=== PATIENT | female | born 1980 | race Caucasian/White ===

== ENCOUNTER → 2019-06-02 | Outpatient (CLI) | payer OTHER ==
--- NOTE | 2019-06-02 15:51 | XR ---
EXAMINATION TYPE: XR tibia fibula LT DATE OF EXAM: 06/02/2019 COMPARISON: NONE HISTORY: Pain TECHNIQUE: Two views are submitted. FINDINGS: The osseous structures are intact. The joint spaces are preserved. There is a deformity of the prox imal fibula which appears to be chronic. IMPRESSION: 1. No acute osseous abnormality. 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 Small osteochondroma not excluded.
--- NOTE | 2019-06-02 15:52 | XR ---
EXAMINATION TYPE: XR ankle complete LT DATE OF EXAM: 06/02/2019 CLINICAL HISTORY: Left ankle pain and swelling TECHNIQUE: Frontal, lateral and oblique images of the left ankle are obtained. COMPARISON: None. FINDINGS: There is no acute fracture/dislocation evident in the left ankle. The ankle mortise appea rs within normal limits. The overlying soft tissue demonstrate diffuse soft tissue swelling of the l eft ankle most pronounced over the lateral malleolus. Small Achilles enthesophyte is seen. IMPRESSION: Pronounced soft tissue swelling over the lateral malleolus of the left ankle with no acut e fracture or dislocation in the left ankle.
--- NOTE | 2019-06-02 15:52 | XR ---
EXAMINATION TYPE: XR foot complete LT DATE OF EXAM: 06/02/2019 COMPARISON: NONE HISTORY: lat malleolus pain TECHNIQUE: Three views are submitted. FINDINGS: The osseous structures are intact. There is no acute fracture or dislocation. Joint spaces are p reserved. Calcaneal spurs noted. IMPRESSION: 1. No acute fracture or dislocation. If symptoms persist, follow-up exam in 7 to 10 days could be ob tained.
== END | disposition home or self-care (01) ==
LOC: RADXRMAIN 15:26
PROVIDERS: ATTEND Emergency Medicine
DX: M79.89 Other specified soft tissue disorders (principal); S93.602A Unspecified sprain of left foot, initial encounter; M21.962 Unspecified acquired deformity of left lower leg

== ENCOUNTER → 2019-07-01 | Outpatient (CLI) | payer OTHER ==
--- NOTE | 2019-07-02 01:03 | MR ---
EXAMINATION TYPE: MR ankle LT wo con DATE OF EXAM: 07/01/2019 COMPARISON: None HISTORY: Lt ankle/foot sprain 06-02-19 Standard multiplanar, multisequence MRI departmental protocol Multiplanar, multisequence images of the left ankle were acquired. FINDINGS: Achilles tendon is intact. There is mild ankle joint effusion. Ankle mortise is anatomic. T he collateral ligaments appear intact. The medial and lateral flexor tendons of the ankle appear inta ct. Plantar fascia appears normal. I see no evidence of a fracture. There is no bony destructive proc ess. IMPRESSION: Mild ankle joint effusion that is nonspecific and could relate to synovitis. No fracture seen. No adelaida dence of ligament or tendon tear.
--- NOTE | 2019-07-02 01:05 | MR ---
EXAMINATION TYPE: MR foot LT wo con DATE OF EXAM: 07/01/2019 COMPARISON: None HISTORY: Lt ankle/foot sprain 06-02-19 Standard multiplanar, multisequence MRI departmental protocol Multiplanar, multisequence images of the left foot were acquired. FINDINGS: Metatarsals are intact. Joint spaces are fairly normal. I see no focal bone destruction. Th ere is no evidence of bone edema to suggest a fracture. Plantar fascia appears normal. Achilles tendo n is intact. There is mild ankle joint effusion. There is no evidence of soft tissue mass. The toes a ppear intact. IMPRESSION: No fracture. Small ankle joint effusion.
== END | disposition home or self-care (01) ==
LOC: RADMRIMAIN 20:36
PROVIDERS: ATTEND Emergency Medicine
DX: S93.402D Sprain of unspecified ligament of left ankle, subsequent encounter (principal); S93.602D Unspecified sprain of left foot, subsequent encounter